=== PATIENT | male | born 2000 | race Two or more races ===

== ENCOUNTER 2021-01-15 07:14 | Outpatient (CLI) | payer OTHER | END 2021-01-15 07:39 | disposition home or self-care (01) | LOC: LAB 07:14 → EDBD 07:14 → LAB 07:39 | PROVIDERS: ATTEND Internal Medicine Endocrinology, Diabetes & Metabolism | DX: Z20.822 Contact with and (suspected) exposure to COVID-19 (principal); Z20.828 Contact with and (suspected) exposure to other viral communicable diseases ==